=== PATIENT | female | born 1940 ===

== ENCOUNTER 2017-12-05 11:43 | Inpatient (IN) | payer MEDICARE, MEDICAID ==
--- NOTE | 2017-12-05 12:36 | RAD ---
HISTORY: Vertigo COMPARISONS: None TECHNIQUE: Multiple contiguous axial CT scans were obtained of the head without intravenous contrast. FINDINGS: HEMORRHAGE/INFARCT: There is no hemorrhage or acute infarct. MASSES/SHIFT: There is no mass or shift. EXTRA-AXIAL SPACES: There are no extra-axial fluid collections. SULCI AND VENTRICLES: The sulci and ventricles are normal in size and position for the patient's stated age. CEREBRUM: There are no focal parenchymal abnormalities. BRAINSTEM: There are no focal parenchymal abnormalities. CEREBELLUM: There are no focal parenchymal abnormalities. VESSELS: The vessels are grossly normal. PARANASAL SINUSES: The paranasal sinuses are clear. ORBITS: The orbits are unremarkable. BONES AND SOFT TISSUE: No bone or soft tissue abnormalities are noted. OTHER: None IMPRESSION: NO ACUTE INTRACRANIAL PATHOLOGY.
[2017-12-05 13:18] LABS: INR 0.91 (0.77-1.02)
[2017-12-05] MEDS ORDERED: Aspirin TAB* 325 MG PO ONE (13:22)
[2017-12-05 13:25] LABS: EGFR Non-African American 89.7 (>60)
[2017-12-05] MEDS ORDERED: Iohexol 350* (CONTRAST) 500 ML MDV IV ONE (13:54)
[2017-12-05 14:02] LABS: Urine Appearance Clear; Urine Blood 1+ (Negative); Urine Color Straw; Urine Ketones Negative (Negative); Urine Protein Negative (Negative); Urine Specific Gravity 1.004 (1.010-1.030); Urine Urobilinogen Negative (Negative)
--- NOTE | 2017-12-05 14:21 | RAD ---
HISTORY: Vertigo COMPARISONS: Head CT dated December 05, 2014 TECHNIQUE: Multiple contiguous axial CT scans were obtained of the head and neck after the administration of nonionic intravenous contrast timed to the systemic arterial phase of contrast enhancement. Coronal and sagittal multiplanar reformations are submitted for review. Multiple 3-D maximum intensity projection reconstructions are also submitted for review. FINDINGS: CTA NECK: AORTIC ARCH: There is a normal three-vessel branching pattern of the aortic arch. There is no ostial or proximal stenosis of the cephalic great vessels. RIGHT VERTEBRAL ARTERY: The right vertebral artery is patent along its course, without stenosis. LEFT VERTEBRAL ARTERY: The left vertebral artery is patent along its course, without stenosis. DOMINANCE: The right vertebral artery is dominant. RIGHT COMMON CAROTID ARTERY: The right common carotid artery is patent. The right carotid bifurcation occurs at C3-C4 RIGHT INTERNAL CAROTID ARTERY: There is no right internal carotid artery stenosis by NASCET criteria. RIGHT EXTERNAL CAROTID ARTERY: The right external carotid artery is unremarkable. LEFT COMMON CAROTID ARTERY: The left common carotid artery is patent. The left carotid bifurcation occurs at C3-C4 LEFT INTERNAL CAROTID ARTERY: There is minimal calcified plaque of the left proximal carotid bifurcation. There is minimal beading of the midportion of the cervical internal carotid artery consistent with fibromuscular dysplasia. LEFT EXTERNAL CAROTID ARTERY: The left external carotid artery is unremarkable. VENOUS CIRCULATION: The venous system is unremarkable. SALIVARY GLANDS: The parotid glands, submandibular glands, sublingual glands are normal. NASAL CAVITY/NASOPHARYNX: The nasal cavity and nasopharynx are normal. ORAL CAVITY/OROPHARYNX: The oral cavity and oropharynx are unremarkable. LARYNGEAL APPARATUS/HYPOPHARYNX: The laryngeal apparatus and hypopharynx are normal. UPPER AIRWAY/UPPER ESOPHAGUS: The visualized upper airway and esophagus are normal. LUNG APICES: The lung apices are clear. THYROID GLAND: The thyroid gland is normal. LYMPH NODES: There is no lymphadenopathy by size criteria. BONES AND SOFT TISSUES: No bone or soft tissue abnormalities are noted. CTA HEAD: INTRACRANIAL CIRCULATION: There is no aneurysm, vascular malformation, occlusion, or stenosis of the visualized intracranial circulation. The anterior communicating artery complex is clear. Bilateral posterior communicating arteries are identified. VENOUS CIRCULATION: The venous system is unremarkable. PERFUSION: There is no obvious parenchymal perfusion deficit. HEMORRHAGE/INFARCT: There is no hemorrhage or acute infarct. MASSES/SHIFT: There is no mass or shift. EXTRA-AXIAL SPACES: There are no extra-axial fluid collections. SULCI AND VENTRICLES: The sulci and ventricles are normal in size and position for the patient's stated age. CEREBRUM: There are no focal parenchymal abnormalities. BRAINSTEM: There are no focal parenchymal abnormalities. CEREBELLUM: There are no focal parenchymal abnormalities. PARANASAL SINUSES: The paranasal sinuses are clear. ORBITS: The orbits are unremarkable. BONES AND SOFT TISSUE: Mild degenerative changes are noted OTHER: There is no abnormal enhancement. IMPRESSION: 1. 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 2. NO INTERNAL CAROTID ARTERY STENOSIS BY NASCET CRITERIA. 3. NO ANEURYSM, VASCULAR MALFORMATION, OCCLUSION, OR STENOSIS OF THE VISUALIZED INTRACRANIAL CIRCULATION. CPT II Codes: 3100F
[2017-12-05] MEDS ORDERED: Ibuprofen TAB* 200 MG PO PRN (14:33)
[2017-12-05 14:45] LABS: ABS Basophils 0.1 10^3/ul (0-0.2); ABS Eosinophils 0.2 10^3/ul (0-0.6); ABS Lymphocytes 1.6 10^3/ul (1.0-4.8); ABS Monocytes 0.3 10^3/ul (0-0.8); ABS Neutrophils 4.6 10^3/ul (1.5-7.7); ABS Nucleated RBC 0 10^3/ul; Eosinophil % 3.1 % (0-6); Hematocrit 40 % (35-47); Hemoglobin 13.9 g/dl (12.0-16.0); Lymphocyte % 23.6 % (25-47); Mean Corpuscular HGB Conc 35 g/dl (31-36); Mean Corpuscular Hemoglobin 32 pg (27-31); Mean Corpuscular Volume 90 fL (80-97); Mean Platelet Volume 8 um3 (7.4-10.4); Nucleated Red Blood Cells % 0.2; Platelet Count 198 10^3/ul (150-450); Red Blood Count 4.41 10^6/ul (4.0-5.4); Red Cell Distribution Width 13 % (10.5-15); White Blood Count 6.8 10^3/ul (3.5-10.8)
[2017-12-05] MEDS ORDERED: NS 0.9% 1000 ML* 1,000 ML IV SCH (14:45)
[2017-12-05] MEDS ORDERED: Meclizine TAB* 12.5 MG PO PRN (14:46)
[2017-12-05] MEDS ORDERED: Ondansetron INJ* 2 MG/ML VIAL IV PRN (14:47)
--- NOTE | 2017-12-05 16:06 | ED ---
Cisco Dyer Stephanie, scribed for Jony Aguillon MD on 12/05/17 at 1222 . Dizziness - HPI Summary HPI Summary: The pt is a 76 y/o F presenting to the ED with c/o dizziness that began at 03: 00. The dizziness is described as head-spinning dizziness. The pt states she woke up to use the bathroom and experienced unsteady gait and nausea. The pt denies double vision and vomiting. - History Of Current Complaint Chief Complaint: EDDizziness Stated Complaint: DIZZINESS,NAUSEA Time Seen by Provider: 12/05/17 11:56 Hx Obtained From: Patient, Family/Operations Associate - granddaughter-smeller Onset/Duration: Still Present Timing: Constant Character: Head Spinning Aggravating Factor(s): Supine To Erect Alleviating Factor(s): Nothing Associated Signs And Symptoms: Positive: Nausea, Unsteady Gait. Negative: Vomiting, Visual Changes - Allergies/Home Medications Allergies/Adverse Reactions: Allergies Allergy/AdvReac Type Severity Reaction Status Date / Time No Known Allergies Allergy Verified 09/26/12 16:21 Home Medications: Home Medications Brimonid/Timolol 0.2/0.5%(NF) [Combigan 0.2/0.5% (NF)] 1 drop BOTH EYES BEDTIME 12/05/17 [History Confirmed 12/05/17] Ketotifen Fumarate [Eye Itch Relief] 1 drop BOTH EYES BID PRN 12/05/17 [History Confirmed 12/05/17] Latanoprost 0.005%* [Xalatan 0.005%*] 1 drop BOTH EYES BEDTIME 12/05/17 [ History Confirmed 12/05/17] PMH/Surg Hx/FS Hx/Imm Hx Endocrine/Hematology History: Reports: Other Endocrine/Hematological Disorders - HLD Neurological History: Reports: Other Neuro Impairments/Disorders - resting R arm tremor - Cancer History Cancer Type, Location and Year: BREAST CA - Surgical History Surgery Procedure, Year, and Place: LEFT MASTECTOMY 1996, ABDOMINAL SURGERY (PT UNABLE TO STATE WHAT KIND OF SURGERY). Infectious Disease History: No Infectious Disease History: Reports: Traveled Outside the [place] in Last 30 Days - in [place] last week - Family History Known Family History: Positive: Cardiac Disease - Social History Occupation: Retired Lives: With Family Alcohol Use: None Substance Use Type: Reports: None Smoking Status (MU): Never Smoked Tobacco Review of Systems Negative: Fever Negative: Blurred Vision Positive: Nausea. Negative: Vomiting Neurological: Other - dizziness, unsteady gait All Other Systems Reviewed And Are Negative: Yes Physical Exam - Summary Physical Exam Summary: Appearance: The patient is well-nourished in no acute distress and in no acute pain. Skin: The skin is warm and dry and skin color reflects adequate perfusion. HEENT: The head is normocephalic and atraumatic. The pupils are equal. Slight horizontal nystagmus, fast component to the right, aggravated by looking to the right. The conjunctivae are clear and without drainage. Nares are patent and without drainage. Mouth reveals moist mucous membranes and the throat is without erythema and exudate. The external ears are intact. The ear canals are patent and without drainage. The tympanic membranes are intact. Neck: the neck is supple with full range of motion and non-tender. There are no carotid bruits. There is no neck vein distension. Respiratory: Chest is non-tender. Lungs are clear to auscultation and breath sounds are symmetrical and equal. Cardiovascular: Heart is regular rate and rhythm. There is no murmur or rub auscultated. There is no peripheral edema and pulses are symmetrical and equal. Abdomen: The abdomen is soft and non-tender. There are normal bowel sounds heard in all four quadrants and there is no organomegaly palpated. Musculoskeletal: There is no back tenderness noted. Extremities are non-tender with full range of motion. There is good capillary refill. There is no peripheral edema or calf tenderness elicited. Neurological: Patient is alert and oriented to person, place and time. The patient has symmetrical motor strength in all four extremities. Cranial nerves are grossly intact. Deep tendon reflexes are symmetrical and equal in all four extremities. Psychiatric: The patient has an appropriate affect and does not exhibit any anxiety or depression. Triage Information Reviewed: Yes Vital Signs On Initial Exam: Initial Vitals Temp Pulse Resp BP Pulse Ox 97.0 F 61 16 205/87 96 12/05/17 11:51 12/05/17 11:51 12/05/17 11:51 12/05/17 11:51 12/05/17 11:51 Vital Signs Reviewed: Yes Diagnostics - Vital Signs Vital Signs Temp Pulse Resp BP Pulse Ox 12/05/17 12:07 98.2 F 61 22 190/91 98 12/05/17 12:05 66 13 97 12/05/17 11:51 97.0 F 61 16 205/87 96 - Laboratory Lab Results: Lab Results 12/05/17 12/05/17 12/05/17 Range/Units 13:00 13:00 13:00 WBC (3.5-10.8) 10^3/ul RBC (4.0-5.4) 10^6/ul Hgb (12.0-16.0) g/dl Hct (35-47) % MCV (80-97) fL MCH (27-31) pg MCHC (31-36) g/dl RDW (10.5-15) % Plt Count (150-450) 10^3/ul MPV (7.4-10.4) um3 Neut % (Auto) (38-83) % Lymph % (Auto) (25-47) % Bell % (Auto) (0-7) % Eos % (Auto) (0-6) % Baso % (Auto) (0-2) % Absolute Neuts (auto) (1.5-7.7) 10^3/ul Absolute Lymphs (auto) (1.0-4.8) 10^3/ul Absolute Monos (auto) (0-0.8) 10^3/ul Absolute Eos (auto) (0-0.6) 10^3/ul Absolute Basos (auto) (0-0.2) 10^3/ul Absolute Nucleated RBC 10^3/ul Nucleated RBC % INR (Anticoag Therapy) 0.91 (0.77-1.02) Sodium 134 (133-145) mmol/L Potassium TNP Chloride 101 (101-111) mmol/L Carbon Dioxide 26 (22-32) mmol/L Anion Gap 7 (2-11) mmol/L BUN 12 (6-24) mg/dL Creatinine 0.64 (0.51-0.95) mg/dL Est GFR ( Amer) 115.4 (>60) Est GFR (Non-Af Amer) 89.7 (>60) BUN/Creatinine Ratio 18.8 (8-20) Glucose 103 H (70-100) mg/dL Lactic Acid 1.1 (0.5-2.0) mmol/L Calcium 10.1 (8.6-10.3) mg/dL Magnesium TNP Total Bilirubin 0.80 (0.2-1.0) mg/dL AST TNP ALT 21 (7-52) U/L Alkaline Phosphatase 105 H (34-104) U/L Troponin I 0.00 (<0.04) ng/mL C-Reactive Protein 2.29 (< 5.00) mg/L Total Protein 7.9 (6.4-8.9) g/dL Albumin 4.6 (3.2-5.2) g/dL Globulin 3.3 (2-4) g/dL Albumin/Globulin Ratio 1.4 (1-3) TSH 0.96 (0.34-5.60) mcIU/mL Urine Color Urine Appearance Urine pH (5-9) Ur Specific Pierz (1.010-1.030) Urine Protein (Negative) Urine Ketones (Negative) Urine Blood (Negative) Urine Nitrate (Negative) Urine Bilirubin (Negative) Urine Urobilinogen (Negative) Ur Leukocyte Esterase (Negative) Urine WBC (Auto) (Absent) Urine RBC (Auto) (Absent) Ur Squamous Epith Cells (Absent) Urine Bacteria (Absent) Urine Glucose (Negative) 12/05/17 12/05/17 12/05/17 Range/Units 13:30 14:34 14:34 WBC 6.8 (3.5-10.8) 10^3/ul RBC 4.41 (4.0-5.4) 10^6/ul Hgb 13.9 (12.0-16.0) g/dl Hct 40 (35-47) % MCV 90 (80-97) fL MCH 32 H (27-31) pg MCHC 35 (31-36) g/dl RDW 13 (10.5-15) % Plt Count 198 (150-450) 10^3/ul MPV 8 (7.4-10.4) um3 Neut % (Auto) 68.3 (38-83) % Lymph % (Auto) 23.6 L (25-47) % Bell % (Auto) 4.0 (0-7) % Eos % (Auto) 3.1 (0-6) % Baso % (Auto) 1.0 (0-2) % Absolute Neuts (auto) 4.6 (1.5-7.7) 10^3/ul Absolute Lymphs (auto) 1.6 (1.0-4.8) 10^3/ul Absolute Monos (auto) 0.3 (0-0.8) 10^3/ul Absolute Eos (auto) 0.2 (0-0.6) 10^3/ul Absolute Basos (auto) 0.1 (0-0.2) 10^3/ul Absolute Nucleated RBC 0 10^3/ul Nucleated RBC % 0.2 INR (Anticoag Therapy) (0.77-1.02) Sodium (133-145) mmol/L Potassium 4.1 Chloride (101-111) mmol/L Carbon Dioxide (22-32) mmol/L Anion Gap (2-11) mmol/L BUN (6-24) mg/dL Creatinine (0.51-0.95) mg/dL Est GFR ( Amer) (>60) Est GFR (Non-Af Amer) (>60) BUN/Creatinine Ratio (8-20) Glucose (70-100) mg/dL Lactic Acid (0.5-2.0) mmol/L Calcium (8.6-10.3) mg/dL Magnesium Total Bilirubin (0.2-1.0) mg/dL AST 20 ALT (7-52) U/L Alkaline Phosphatase (34-104) U/L Troponin I (<0.04) ng/mL C-Reactive Protein (< 5.00) mg/L Total Protein (6.4-8.9) g/dL Albumin (3.2-5.2) g/dL Globulin (2-4) g/dL Albumin/Globulin Ratio (1-3) TSH (0.34-5.60) mcIU/mL Urine Color Straw Urine Appearance Clear Urine pH 7.0 (5-9) Ur Specific Pierz 1.004 L (1.010-1.030) Urine Protein Negative (Negative) Urine Ketones Negative (Negative) Urine Blood 1+ A (Negative) Urine Nitrate Negative (Negative) Urine Bilirubin Negative (Negative) Urine Urobilinogen Negative (Negative) Ur Leukocyte Esterase Trace A (Negative) Urine WBC (Auto) Trace(0-5/hpf) (Absent) Urine RBC (Auto) Trace(0-2/hpf) (Absent) Ur Squamous Epith Cells Present A (Absent) Urine Bacteria Absent (Absent) Urine Glucose Negative (Negative) Result Diagrams: 12/05/17 14:34 12/05/17 14:34 Lab Statement: Any lab studies that have been ordered have been reviewed, and results considered in the medical decision making process. - CT Brain CT Interpretation: No Acute Changes CT Interpretation Completed By: Radiologist - NO ACUTE INTRACRANIAL PATHOLOGY. - EKG 12:16 Cardiac Rate: NL EKG Rhythm: Sinus Rhythm - [address] Segment: Normal Ectopy: None EKG Interpretation: Normal Dizzy Course/Dx - Course Course Of Treatment: Ms. Pryor woke up this AM and noticed dizziness and a gait disturbance. She has vomited at least once and is still nauseated. She has no tinnitius, diplopia or speech problems. She has a little horizontal nystagmus brought out by looking to the right. No headache. I consulted with Dr. Donahue because of the risk factors for a central etiology and she came to the ED to evaluate the patient. She is being admitted by the hospitalist. - Diagnoses Provider Diagnoses: Vertigo Discharge - Discharge Plan Condition: Stable Disposition: ADMITTED TO [facility] Referrals: Mynor Del Toro MD [Primary Care Provider] - The documentation as recorded by the Cisco shah Stephanie accurately reflects the service I personally performed and the decisions made by me, Jony Aguillon MD.
[2017-12-05] MEDS: Heparin VIAL(*) 5000 UNITS/ML VIAL (FIVE THOUSAND) SUBCUT SCH ×2 (21:18→22:00)
[2017-12-05] MEDS: Latanoprost 0.005%* 2.5 ml BTL BOTH EYES SCH (21:43)
--- NOTE | 2017-12-05 22:58 | CONS ---
CONSULTATION REPORT: DATE OF CONSULT: 12/05/17 REQUESTING PHYSICIAN: Dr. Moisés Aguillon. DOCTOR OF NURSE ANESTHESIA: Granddaughter. HISTORY OF PRESENT ILLNESS: Roya Martinez is a 76-year-old woman from [place] with a history of breast cancer who after a recent trip to [place] developing a cough, now comes in with acute onset of vertigo. At about 3 a.m., she was in bed and all of a sudden had acute onset of vertigo with no other focal symptoms noted on history or exam other than a brief period of time where she saw 2 lights in the morning instead of 1. There was associated nausea, no vomiting. She felt unsteady when she would move. No new numbness or weakness of arms or legs. No change in speech. In the emergency room, persistent dizziness and nystagmus was noted by ED provider. She was sent for a CT of the brain, which did not show any intracranial pathology and this film was reviewed directly given the symptom onset at 3 a.[address] We proceeded to CT of the brain and neck, which did not show vertebrobasilar stenosis. Her NIH stroke scale was 0 on my examination. PAST MEDICAL HISTORY: Includes glaucoma, history of breast cancer with left mastectomy, no recurrence, left knee replacement, and a cholecystomy. MEDICATIONS: Include: 1. Latanoprost 0.005% in both eyes each night. 2. Combigan 0.2/0.5 drop in each eye at night. 3. Ibuprofen p.r.n. 4. Ketotifen p.r.n. for itching of eyes. ALLERGIES: She has no known drug allergies. FAMILY HISTORY: Includes mother around 60 when she collapsed. Father in his 80s, unknown cause. Brother in his 90s, he had some eye problems and his sister last month in her 70s of heart disease. SOCIAL HISTORY: She lives with her family. She does not smoke. Rarely drinks alcohol. REVIEW OF SYSTEMS: There is no chest pain, chest pressure, palpitations. She has had a recent cough. There has been no pain in her ears. She complained of some tinnitus to her daughter, but denies this now. There has been no difficulty with swallowing. No numbness or weakness of arms or legs, change in bowel or bladder habits, recent rash, illness. There has been no recent trauma. No known psychiatric history. PHYSICAL EXAM: On examination, vital signs include a temperature of 98.2 degrees Fahrenheit, pulse of 74, respiratory rate 20, saturation 97%. Her blood pressures have been high since she is here, most recent blood pressure was 208/80. She had a regular cardiac rhythm. Her lungs are clear to auscultation. There was no evidence of peripheral edema and good peripheral pulses. She has full extraocular movements with no nystagmus. Pupils were equal and responsive to light. Fundi were hard to visualize. When asking her to turn her head quickly to the left, she felt a little off and she also felt this, however, to the right. Later after a CT was cleared, we did a Hallpike and it was perhaps worse on the left than the right, but no nystagmus was seen. Her facial expression, sensation, hearing were equal. Palate was upgoing. Tongue was midline. Sternocleidomastoid and trapezius were 5/5 in strength. There was normal bulk and tone. No pronator drift. Good strength in the upper and lower extremities with normal [id number] and heel-to- young movements. She denied any asymmetries to pinprick, cold or light touch and there was no neglect. Her vibration sensation was still felt at the toes, but down by about 20 seconds. Reflexes were 2+ in the upper extremities, absent in the lower extremities. Toes were flexor response. Gait was not tested due to clinical status. LABORATORY DATA/DIAGNOSTIC STUDIES: Recent results include a CBC, which showed a normal white count, hemoglobin, hematocrit, and platelets. Lymphocytes were slightly decreased to 23.6. Her metabolic panel showed a glucose of 103. Her alk phos was elevated at 105. TSH was within normal limits as was C-reactive protein. Urinalysis showed trace esterase, 1+ blood. The CT of the brain showed no significant pathology. This film was reviewed directly and CTA of the brain showed some mild fibromuscular dysplasia in the left ICA, however no evidence of vertebrobasilar stenosis. IMPRESSION: Mrs. Martinez is a 76-year-old woman with a history of breast cancer and a recent trip to [place] with cough, now with acute onset of vertigo with no clear focal findings on examination. Hallpike maneuver was performed, and question was made whether there was some subtle difference going to the left, but this could not be reproduced and there was no nystagmus. Differential does still includes stroke/TIA. Accordingly, she will be on aspirin, admitted to telemetry, echocardiogram, MRI depending on how her exam evolves. If it becomes clear that is peripheral in etiology, then we can hold up on any further workup. I would check fasting lipid profile. TIME SPENT: Over an hour was spent in direct patient care in the emergency room. All questions were answered. [id number]/[facility] #: [id number] VANDANA
--- NOTE | 2017-12-06 00:13 | HP ---
CC: Dr. Del Toro* [facility] MEDICINE HISTORY AND PHYSICAL: DATE OF ADMISSION: 12/05/17 PRIMARY CARE PHYSICIAN: Dr. Del Toro. ATTENDING PHYSICIAN: Dr. Karoline Foy* (dictation provided by Georgia Weiss NP) CHIEF COMPLAINT: Dizziness. HISTORY OF PRESENT ILLNESS: Ms. Martinez is a 76-year-old female with a past medical history of glaucoma, hyperlipidemia and breast cancer over 20 years ago who presents today at the hospital with concern for dizziness. Ms. Martinez has lived in [place] for about 10 years, but she does not speak [place] as a primary language and is from [place]. Multiple members of her family are at the bedside to help with translation. Per the report, Ms. Martinez began to feel dizzy at 3 a.m. when she awoke to go to the bathroom. She states the dizziness was worse when she is upright and much better when she is lying down. She denies headache. She has had no nausea or vomiting. She has had no recent illnesses other than a dry cough, which she has had for about 2 weeks. She denies chest pain, shortness of breath, abdominal pain. She has had no diarrhea. She has been eating and drinking well prior to today. The patient reports that she had a similar episode about a year ago that lasted about 2 days and resolved spontaneously. This was while she was in [place] and she was not hospitalized at that time. In the emergency room, Ms. Martinez had a CT of the brain, which showed no acute abnormality. 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 No internal carotid artery stenosis by NASCET criteria. No aneurysm, vascular malformation, occlusion, or stenosis of the visualized intracranial circulation." The patient was seen in consultation by Dr. Donahue, who performed a [place]-Hallpike Maneuver and there was no clear improvement in the dizziness; though at the time of my examination, the patient seems to indicate she does feel a bit better. PAST MEDICAL HISTORY: 1. Glaucoma. 2. Breast cancer 20 years ago, status post mastectomy. 3. Hyperlipidemia. MEDICATIONS: 1. Combigan 0.2/0.5% one drop both eyes at bedtime. 2. Ketotifen fumarate 1 drop both eyes b.i.d. p.r.n. 2. Ibuprofen 200 mg p.o. q.6 hours p.r.n. 3. Latanoprost 0.005% one drop both eyes at bedtime. ALLERGIES: No known drug allergies. FAMILY HISTORY: The patient's family reports that both of her parents when they were elderly, but there was no clear cause of determined. SOCIAL HISTORY: No report of tobacco or drug use. The patient drinks alcohol about once per month. The report was that Diana Martinez will be her healthcare proxy, who is her son. REVIEW OF SYSTEMS: A 14-point review of systems was completed with Ms. Martinez and all those not mentioned above were negative. PHYSICAL EXAMINATION GENERAL: Ms. Martinez is lying in the bed. She is in no acute distress. Multiple family members are at the bedside. VITAL SIGNS: Temperature 98.2, heart rate 69, respiratory rate 20, O2 saturation 97% on room air, blood pressure 187/75. HEENT: Head is normocephalic, atraumatic. Eyes are anicteric and there was no conjunctival injection. Ears, the tympanic membranes show no erythema and a normal cone of light. The oropharynx is clear without erythema or exudate. LUNGS: Clear to auscultation bilaterally with no accessory muscle use and good aeration. HEART: S1, S2. No murmur, rub, or gallop, and regular. ABDOMEN: Soft, nontender with bowel sounds positive x4. EXTREMITIES: No cyanosis or edema. NEURO: She is alert. She is oriented x3. She moves all extremities equally. There is no facial asymmetry or focal weakness. Extraocular movements are intact. SKIN: Intact. DIAGNOSTIC STUDIES/LAB DATA: WBC is 6.8, hemoglobin 13.9, hematocrit 40, platelet count 198. INR is 0.91. Sodium 134, potassium 4.1, chloride 101, serum bicarbonate 26, BUN 12, creatinine 0.64, glucose 103, lactic acid 1.1, troponin 0.00. Urine shows trace leukocyte esterase, but no bacteria and no nitrite. CT brain shows no acute intracranial pathology. The head and neck CTA is as read per the HPI. ASSESSMENT AND PLAN: Ms. Martinez is an 76-year-old female with a past medical history of glaucoma, breast cancer and hyperlipidemia who presents today at the hospital with concerns for dizziness. Our plans are for observation in the hospital for the followin. Dizziness: It is possible that this is benign positional paroxysmal vertigo. I appreciate the consultation from Dr. Donahue. She indicates that there is no clear nystagmus on [place]-Hallpike maneuver today and so diagnosis of benign paroxysmal positional vertigo is uncertain. The patient will require workup for stroke including telemetry monitoring and echocardiogram. CT brain is negative. She has been provided with aspirin and we will check a lipid profile. Dr. Donahue has indicated that she will follow along with the clinical course. An MRI brain will be ordered if needed based on examination tomorrow. 2. Hypertension. The patient's blood pressure has been running systolically 180 to 200 in the emergency room. Plan will be to add hydralazine for blood pressure greater than 185 if needed along with oral agents as needed based on clinical course. 3. Hyperlipidemia. The patient is not currently on any medication. Again, we are checking lipid profile. 4. Glaucoma. Continue home medications. 5. DVT prophylaxis with heparin subcu. 6. Code status is full code. TIME SPENT: Approximately 60 minutes were spent on admission of this patient; more than half time spent with the patient at the bedside reviewing the events leading up to this hospitalization, performing the physical examination and reviewing my plan of care. GEORGIA WEISS NP [id number]/[facility] #: [id number] VANDANA
[2017-12-06] MEDS: amLODIPine TAB* 5 MG PO SCH (04:59)
[2017-12-06] MEDS: Heparin VIAL(*) 5000 UNITS/ML VIAL (FIVE THOUSAND) SUBCUT SCH ×2 (05:01→14:11)
[2017-12-06] MEDS: Aspirin TAB* 325 MG PO SCH (08:19)
[2017-12-06] MEDS: BRIMONID BOTH EYES SCH ×2 (10:43→19:52)
[2017-12-06] MEDS: TIMOLOL BOTH EYES SCH ×2 (10:43→19:52)
--- NOTE | 2017-12-06 16:46 | PN ---
Subjective Date of Service: 12/06/17 Interval History: she feels completely better today. she has about 15 visitors in her room right now and she feels very good. her son Bryan interprets for me. she has been walking around, lying down and sitting up. no headache, blurry vision, weakness. her family has no concerns. Family History: Unchanged from Admission Social History: Unchanged from Admission Past Medical History: Unchanged from Admission Objective Active Medications: Amlodipine Besylate (Norvasc Tab*) 2.5 mg PO 0900 [facility] Last Admin: 12/06/17 04:59 Dose: 2.5 mg Aspirin (Aspirin Tab*) 325 mg PO DAILY [facility] Last Admin: 12/06/17 08:19 Dose: 325 mg Atorvastatin Calcium (Lipitor*) 40 mg PO 1700 [facility] Last Admin: 12/06/17 16:29 Dose: 40 mg Brimonidine/Timolol (Combigan 0.2/0.5% (Nf)) 1 drop BOTH EYES BID [facility] Last Admin: 12/06/17 10:43 Dose: 1 drop Heparin Sodium (Porcine) (Heparin Vial(*)) 5,000 units SUBCUT Q8HR [facility] Last Admin: 12/06/17 14:11 Dose: 5,000 units Ibuprofen (Advil Tab*) 200 mg PO Q6H PRN PRN Reason: PAIN Last Admin: 12/05/17 16:27 Dose: 200 mg Latanoprost (Xalatan 0.005%*) 1 drop BOTH EYES BEDTIME [facility] Last Admin: 12/05/17 21:43 Dose: 1 drop Meclizine HCl (Antivert Tab*) 12.5 mg PO Q8HR PRN PRN Reason: DIZZINESS Ondansetron HCl (Zofran Inj*) 4 mg IV Q6H PRN PRN Reason: NAUSEA Vital Signs - 8 hr 12/06/17 12/06/17 11:58 15:09 Temperature 97.8 F 98.1 F Pulse Rate 57 56 Respiratory 24 20 Rate Blood Pressure 147/71 143/66 (mmHg) O2 Sat by Pulse 97 97 Oximetry Oxygen Devices in Use Now: None Appearance: sitting up in chair, no distress Eyes: No Scleral Icterus, - - no nystagmus Ears/Nose/Mouth/Throat: NL Teeth, Lips, Gums Neck: NL Appearance and Movements; NL JVP Respiratory: Symmetrical Chest Expansion and Respiratory Effort, Clear to Auscultation Cardiovascular: NL Sounds; No Murmurs; No JVD, RRR Abdominal: NL Sounds; No Tenderness; No Distention Lymphatic: No Cervical Adenopathy Extremities: No Edema Skin: No Rash or Ulcers Neurological: Alert and Oriented x 3, NL Gait, NL Muscle Strength and Tone Result Diagrams: 12/05/17 14:34 12/05/17 14:34 Additional Lab and Data: Lab Results 12/05/17 12/05/17 12/05/17 Range/Units 13:00 13:00 13:00 WBC (3.5-10.8) 10^3/ul RBC (4.0-5.4) 10^6/ul Hgb (12.0-16.0) g/dl Hct (35-47) % MCV (80-97) fL MCH (27-31) pg MCHC (31-36) g/dl RDW (10.5-15) % Plt Count (150-450) 10^3/ul MPV (7.4-10.4) um3 Neut % (Auto) (38-83) % Lymph % (Auto) (25-47) % [place] % (Auto) (0-7) % Eos % (Auto) (0-6) % Baso % (Auto) (0-2) % Absolute Neuts (auto) (1.5-7.7) 10^3/ul Absolute Lymphs (auto) (1.0-4.8) 10^3/ul Absolute Monos (auto) (0-0.8) 10^3/ul Absolute Eos (auto) (0-0.6) 10^3/ul Absolute Basos (auto) (0-0.2) 10^3/ul Absolute Nucleated RBC 10^3/ul Nucleated RBC % INR (Anticoag Therapy) 0.91 (0.77-1.02) Sodium 134 (133-145) mmol/L Potassium TNP Chloride 101 (101-111) mmol/L Carbon Dioxide 26 (22-32) mmol/L Anion Gap 7 (2-11) mmol/L BUN 12 (6-24) mg/dL Creatinine 0.64 (0.51-0.95) mg/dL Est GFR ( Amer) 115.4 (>60) Est GFR (Non-Af Amer) 89.7 (>60) BUN/Creatinine Ratio 18.8 (8-20) Glucose 103 H (70-100) mg/dL Lactic Acid 1.1 (0.5-2.0) mmol/L Calcium 10.1 (8.6-10.3) mg/dL Magnesium TNP Total Bilirubin 0.80 (0.2-1.0) mg/dL AST TNP ALT 21 (7-52) U/L Alkaline Phosphatase 105 H (34-104) U/L Troponin I 0.00 (<0.04) ng/mL C-Reactive Protein 2.29 (< 5.00) mg/L Total Protein 7.9 (6.4-8.9) g/dL Albumin 4.6 (3.2-5.2) g/dL Globulin 3.3 (2-4) g/dL Albumin/Globulin Ratio 1.4 (1-3) TSH 0.96 (0.34-5.60) mcIU/mL Urine Color Urine Appearance Urine pH (5-9) Ur Specific [place] (1.010-1.030) Urine Protein (Negative) Urine Ketones (Negative) Urine Blood (Negative) Urine Nitrate (Negative) Urine Bilirubin (Negative) Urine Urobilinogen (Negative) Ur Leukocyte Esterase (Negative) Urine WBC (Auto) (Absent) Urine RBC (Auto) (Absent) Ur Squamous Epith Cells (Absent) Urine Bacteria (Absent) Urine Glucose (Negative) 12/05/17 12/05/17 12/05/17 Range/Units 13:30 14:34 14:34 WBC 6.8 (3.5-10.8) 10^3/ul RBC 4.41 (4.0-5.4) 10^6/ul Hgb 13.9 (12.0-16.0) g/dl Hct 40 (35-47) % MCV 90 (80-97) fL MCH 32 H (27-31) pg MCHC 35 (31-36) g/dl RDW 13 (10.5-15) % Plt Count 198 (150-450) 10^3/ul MPV 8 (7.4-10.4) um3 Neut % (Auto) 68.3 (38-83) % Lymph % (Auto) 23.6 L (25-47) % [place] % (Auto) 4.0 (0-7) % Eos % (Auto) 3.1 (0-6) % Baso % (Auto) 1.0 (0-2) % Absolute Neuts (auto) 4.6 (1.5-7.7) 10^3/ul Absolute Lymphs (auto) 1.6 (1.0-4.8) 10^3/ul Absolute Monos (auto) 0.3 (0-0.8) 10^3/ul Absolute Eos (auto) 0.2 (0-0.6) 10^3/ul Absolute Basos (auto) 0.1 (0-0.2) 10^3/ul Absolute Nucleated RBC 0 10^3/ul Nucleated RBC % 0.2 INR (Anticoag Therapy) (0.77-1.02) Sodium (133-145) mmol/L Potassium 4.1 Chloride (101-111) mmol/L Carbon Dioxide (22-32) mmol/L Anion Gap (2-11) mmol/L BUN (6-24) mg/dL Creatinine (0.51-0.95) mg/dL Est GFR ( Amer) (>60) Est GFR (Non-Af Amer) (>60) BUN/Creatinine Ratio (8-20) Glucose (70-100) mg/dL Lactic Acid (0.5-2.0) mmol/L Calcium (8.6-10.3) mg/dL Magnesium Total Bilirubin (0.2-1.0) mg/dL AST 20 ALT (7-52) U/L Alkaline Phosphatase (34-104) U/L Troponin I (<0.04) ng/mL C-Reactive Protein (< 5.00) mg/L Total Protein (6.4-8.9) g/dL Albumin (3.2-5.2) g/dL Globulin (2-4) g/dL Albumin/Globulin Ratio (1-3) TSH (0.34-5.60) mcIU/mL Urine Color Straw Urine Appearance Clear Urine pH 7.0 (5-9) Ur Specific [place] 1.004 L (1.010-1.030) Urine Protein Negative (Negative) Urine Ketones Negative (Negative) Urine Blood 1+ A (Negative) Urine Nitrate Negative (Negative) Urine Bilirubin Negative (Negative) Urine Urobilinogen Negative (Negative) Ur Leukocyte Esterase Trace A (Negative) Urine WBC (Auto) Trace(0-5/hpf) (Absent) Urine RBC (Auto) Trace(0-2/hpf) (Absent) Ur Squamous Epith Cells Present A (Absent) Urine Bacteria Absent (Absent) Urine Glucose Negative (Negative) Assess/Plan/Problems-Billing Assessment: 76 yo female with history of glaucoma and remote breast cancer who was admitted 3/3 with sudden onset of "dizziness" that began in the middle of the night and lasted several hours but is now completely resolved. - Patient Problems (1) Disequilibrium Current Visit: Yes Status: Acute Code(s): R42 - DIZZINESS AND GIDDINESS SNOMED Code(s): 94428365 Comment: isaac hallpike was unable to be performed yesterday, and is of no use today while symptoms are not present. the timeline of her symptoms (lasting hours) does not fit one of BPPV. her Ct head was unremarkable, and the CTA showed fibromuscular dysplasia of the internal carotid artery but without stenosis. needs MRI tomorrow. start atorvastatin for concern for TIA, continue ASA. also TTE tomorrow (2) Glaucoma Current Visit: Yes Status: Acute Code(s): H40.9 - UNSPECIFIED GLAUCOMA SNOMED Code(s): 07087947 Comment: continue home eye drops (3) HTN (hypertension) Current Visit: Yes Status: Acute Code(s): I10 - ESSENTIAL (PRIMARY) HYPERTENSION SNOMED Code(s): 51537975 Comment: there was some concern of poorly controlled htn at admission, but today has been at goal. amlodipine 2.5mg was added last night. Status and Disposition: needs MRi and TTE tomorrow
[2017-12-06] MEDS ORDERED: Atorvastatin* 40 MG TAB PO SCH (17:00)
[2017-12-06] MEDS: Latanoprost 0.005%* 2.5 ml BTL BOTH EYES SCH (19:54)
--- NOTE | 2017-12-07 03:47 | PN ---
FOLLOWUP NOTE: DATE OF FOLLOWUP: 12/06/2017. HISTORY OF PRESENT ILLNESS: Mrs. Martinez is a 76-year-old woman who was admitted last night with vertigo. For details, see my consultation from yesterday. Since that time, she tells me that she has had no dizziness. She could not recreate dizziness with head turn on today's exam. She has not had dizziness when getting out of bed. This she had experienced when she was in the emergency room. Given persistent nystagmus and vertigo despite seen by the emergency room physician, stroke was high on differential diagnosis and she had a CTA, which did not show posterior circulation pathology that would contribute to her symptoms. Her CT of the brain did not show new stroke and she was admitted to the hospital. Differential included benign positional vertigo given some position component that was noted on exam; however, could not be reproduced on Hallpike. She was placed on aspirin and then monitored with telemetry. PHYSICAL EXAMINATION: On examination this afternoon, her blood pressure was 147 /71, improved from previous. Her temperature is 97.8 degrees Fahrenheit, respiratory rate is 24, pulse 57, saturation 97%. She has a regular cardiac rhythm. Her lungs were clear to auscultation. She had full extraocular movements with no nystagmus. Her facial expression was symmetric. There was no dysarthria. There was normal bulk and tone. No pronator drift. Normal coordination with [id number] and [id number] movements with no evidence of dysmetria and full strength in her arms and legs. LABORATORY DATA: Includes lipid profile from this morning showing total cholesterol of 187, triglycerides 125, LDL 118, HDL 43.6. IMPRESSION AND PLAN: Mrs. Martinez is a 76-year-old woman with minimal past medical history, who came in with acute onset of vertigo, question to be a transient ischemic attack versus stroke versus peripheral in etiology. Her symptoms have now resolved. She has been hypertensive while in hospital. It is improving, but it is still significant. She may need treatment. At this point, we have held off on treating and given permissive hypertension in the setting of differential diagnosis of stroke. At this point given her symptoms cannot be reproduced, I cannot state that this is clearly peripheral in etiology. This patient was in place in the emergency room for stroke versus transient ischemic attack and will continue stroke workup with MRI of the brain , echocardiogram with bubble study and continue to monitor her on telemetry. She has been started on aspirin and I would add atorvastatin for treatment of cholesterol. The history, the education for today's visit was all provided via family members and translators. I spoke to more than one relative and providing translation. TIME SPENT: Over 40 minutes was spent in direct patient care with 50% of the time spending in education and counseling as well as case was discussed with covering hospitalist. All questions were answered. Tomorrow, Dr. Peterson will be taking over in providing care. [id number]/[facility] #: [id number] VANDANA
[2017-12-07] MEDS: Heparin VIAL(*) 5000 UNITS/ML VIAL (FIVE THOUSAND) SUBCUT SCH ×2 (05:18→13:23)
--- NOTE | 2017-12-07 10:24 | ECHO ---
Patient: PA HERNANDEZ [facility] Rec#: [id number] : 1940 Date: 12/07/2017 Age: 76y Height: 152.4 cm / 60.0 in Weight: 86.18 kg / 189.9 lbs Sex: F BSA: 1.83 Room#: 443 Admit Date#: 12/05/2017 Type: Inpatient Referring: Georgia Weiss NP Reading: Jl Lopez MD [employer]: Gely Metz RDCS CC: Mynor Del Toro MD Transthoracic Echocardiogram Indication: CVA/dizziness BP: 156/59 HR: 65 Rhythm: NSR Findings History: HLD,s/p left mastectomy for breast cancer. Technical Comments: The study quality is good. Completed at 0845. Language barrier did effect technical quality. Left Ventricle: Mild concentric left ventricular hypertrophy is observed. Global left ventricular wall motion and contractility are within normal limits. There is normal left ventricular systolic function. The estimated ejection fraction is 55-60%. Abnormal left ventricular diastolic function is observed. Left Atrium: The left atrial chamber size is normal. Right Ventricle: The right ventricular cavity size is normal. The right ventricular global systolic function is normal. Right Atrium: The right atrial cavity size is normal. There is no patent foramen ovale visualized. There is no evidence of patent foramen ovale shunting. A patent foramen ovale is not demonstrated with color Doppler and agitated contrast. Aortic Valve: The aortic valve is trileaflet. There is no evidence of aortic valve thickening. There is moderate aortic regurgitation. There is no evidence of aortic stenosis. Mitral Valve: The mitral valve leaflets are mildly thickened. There is mild mitral regurgitation. There is no evidence of mitral stenosis. Tricuspid Valve: The tricuspid valve leaflets are normal. There is mild tricuspid regurgitation. There is evidence of mild pulmonary hypertension. There is no tricuspid stenosis. Pulmonic Valve: The pulmonic valve appears normal. There is mild pulmonic regurgitation. There is no pulmonic stenosis. Pericardium: A pericardial fat pad is visualized. Aorta: There is no dilatation of the ascending aorta. There is no dilatation of the aortic arch. There is no dilation of the aortic root. Pulmonary Artery: The main pulmonary artery appears normal. Venous: The inferior vena cava appears normal in size. There is a greater than 50% respiratory change in the inferior vena cava dimension. Contrast: Normal saline was used as contrast for the bubble study. Intravenous contrast was used to help determine presence of intracardiac shunting. Summary: There was not any prior study for comparison. Conclusions Global left ventricular wall motion and contractility are within normal limits. There is normal left ventricular systolic function. The estimated ejection fraction is 55-60%. The right ventricular global systolic function is normal. A patent foramen ovale is not demonstrated with color Doppler and agitated contrast. There is moderate aortic regurgitation. There is mild mitral regurgitation. There is mild tricuspid regurgitation. There is evidence of mild pulmonary hypertension. Measurements Name Value Normal Range RVIDd (AP) 2D 2.7 cm (0.9 - 2.6) RVDdMajor (2D) 3.1 cm (2.2 - 4.4) RAd ISD 4CH 5 cm (3.4 - 4.9) RA (A4C)W 3.5 cm (2.9 - 4.6) IVSd (2D) 1.2 cm (0.6 - 1) LVPWd (2D) 1.1 cm (0.6 - 1) LVIDd (2D) 4.3 cm (3.6 - 5.4) LVIDs (2D) 3.1 cm - LV FS (2D) 30 % (25 - 45) Aortic Annulus 2.2 cm (1.4 - 2.6) Ao root diameter (2D) 3.5 cm (2.1 - 3.5) Ascending Ao 3.1 cm (2.1 - 3.4) Aortic arch 3 cm (1.8 - 3.4) Descending Ao 0.5 cm - LA dimension (AP) 2D 3.7 cm (2.3 - 3.8) LAd ISD 4CH 5.3 cm (2.9 - 5.3) LA ISD 4CH W 3.1 cm (2.5 - 4.5) Name Value Normal Range LA ESV SP 4CH (A/L) 36 ml - LA ESV SP 2CH (A/L) 47 ml - LA ESV BP (A/L) 43 ml - LA ESV BP (A/L) index 23.62 ml/m2 - LA ESV SP 4CH (MOD) 34 ml - LA ESV SP 2CH (MOD) 46 ml - Name Value Normal Range MV E-wave Vmax 0.7 m/sec - MV deceleration time 303 msec - MV A-wave Vmax 1 m/sec - MV E:A ratio 0.68 ratio - LV septal e' Vmax 0.04 m/sec - LV lateral e' Vmax 0.05 m/sec - LV E:e' septal ratio 17.5 ratio - LV E:e' lateral ratio 14 ratio - Name Value Normal Range AV Vmax 1.6 m/sec - AV VTI 40.31 cm - AV peak gradient 10.49 mmHg - AV mean gradient 5.42 mmHg - LVOT Vmax 1.5 m/sec - LVOT VTI 34.9 cm - LVOT peak gradient 8.64 mmHg - LVOT mean gradient 4.06 mmHg - AR PHT 412 msec - AR peak gradient 117 mmHg - Name Value Normal Range TR Vmax 2.9 m/sec - TR peak gradient 34 mmHg - RAP 3 mmHg - RVSP 37 mmHg - IVC diameter 1.5 cm - Name Value Normal Range PV Vmax 0.8 m/sec - PV peak gradient 2.41 mmHg -
[2017-12-07] MEDS: amLODIPine TAB* 5 MG PO SCH (10:32)
[2017-12-07] MEDS: BRIMONID BOTH EYES SCH (10:32)
[2017-12-07] MEDS: TIMOLOL BOTH EYES SCH (10:32)
[2017-12-07] MEDS: Aspirin TAB* 325 MG PO SCH (10:32)
--- NOTE | 2017-12-07 11:38 | PN ---
Subjective Date of Service: 12/07/17 Interval History: No new issues overnight. Family is at the bedside and able to translate for me. Dizziness has resolved. No nausea or vomiting, no headache or ringing in her ears. No focal weakness or numbness/tingling. No problems with speech or swallowing. She is ambulating without assistance. Symptoms have resolved. 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 No significant stenosis. --Echo: Normal EF. No PFO. EF 55-60%. Moderate Aortic Regurg --Cholesterol: 187, LDL 118 Family History: Unchanged from Admission Social History: Unchanged from Admission Past Medical History: Unchanged from Admission Objective Active Medications: Amlodipine Besylate (Norvasc Tab*) 2.5 mg PO 0900 [facility] Last Admin: 12/07/17 10:32 Dose: 2.5 mg Aspirin (Aspirin Tab*) 325 mg PO DAILY [facility] Last Admin: 12/07/17 10:32 Dose: 325 mg Atorvastatin Calcium (Lipitor*) 40 mg PO 1700 [facility] Last Admin: 12/06/17 16:29 Dose: 40 mg Brimonidine/Timolol (Combigan 0.2/0.5% (Nf)) 1 drop BOTH EYES BID [facility] Last Admin: 12/07/17 10:32 Dose: 1 drop Heparin Sodium (Porcine) (Heparin Vial(*)) 5,000 units SUBCUT Q8HR [facility] Last Admin: 12/07/17 05:18 Dose: 5,000 units Ibuprofen (Advil Tab*) 200 mg PO Q6H PRN PRN Reason: PAIN Last Admin: 12/05/17 16:27 Dose: 200 mg Latanoprost (Xalatan 0.005%*) 1 drop BOTH EYES BEDTIME [facility] Last Admin: 12/06/17 19:54 Dose: 1 drop Meclizine HCl (Antivert Tab*) 12.5 mg PO Q8HR PRN PRN Reason: DIZZINESS Ondansetron HCl (Zofran Inj*) 4 mg IV Q6H PRN PRN Reason: NAUSEA Vital Signs 12/06/17 12/06/17 12/06/17 11:58 15:09 19:23 Temperature 97.8 F 98.1 F 97.6 F Pulse Rate 57 56 58 Respiratory 24 20 28 Rate Blood Pressure 147/71 143/66 147/57 (mmHg) O2 Sat by Pulse 97 97 96 Oximetry 12/06/17 12/06/17 12/07/17 20:00 23:33 03:34 Temperature 97.7 F 98.5 F Pulse Rate 59 63 Respiratory 22 20 16 Rate Blood Pressure 148/62 156/59 (mmHg) O2 Sat by Pulse 99 97 Oximetry 12/07/17 10:11 Temperature 97.8 F Pulse Rate 80 Respiratory 14 Rate Blood Pressure 153/88 (mmHg) O2 Sat by Pulse 96 Oximetry Oxygen Devices in Use Now: None Neurology Exam: General: HEENT: Normocephalic/atraumatic, sclera anicteric, mucous membranes moist Neck: Supple Chest: Clear to auscultation bilaterally Cardiovascular: Regular rate and rhythm without murmurs, rubs, gallops Abdomen: Soft, nontender/nondistended Extremities: No clubbing, cyanosis, or edema Neurological Findings: Awake, Alert, Oriented x3 Speech: fluent without dysarthric, repetition intact. Speaks Palauan only. Cranial Nerve: PEERL, EOM intact, VFF, no nystagmus, face symmetric bilaterally , facial sensation intact, hearing intact to finger rub bilaterally, palate elevates symmetrically, tongue midline, SCM and Trapezius s/s. No reproducible symptoms with head turning Motor: 5/5 throughout, proximal and distal extremities x4 tone/bulk normal Sensation: intact to LT/PP bilaterally upper and lower extremities Finger to nose, rapid alternating movements intact without tremor, no dysdiadochokinesia Gait: wide based and slow but that is baseline for her. Steady. Rhomberg minimal sway with eyes open and closed Result Diagrams: 12/05/17 14:34 12/05/17 14:34 Additional Lab and Data: Lab Results 12/05/17 12/05/17 12/05/17 Range/Units 13:00 13:00 13:00 WBC (3.5-10.8) 10^3/ul RBC (4.0-5.4) 10^6/ul Hgb (12.0-16.0) g/dl Hct (35-47) % MCV (80-97) fL MCH (27-31) pg MCHC (31-36) g/dl RDW (10.5-15) % Plt Count (150-450) 10^3/ul MPV (7.4-10.4) um3 Neut % (Auto) (38-83) % Lymph % (Auto) (25-47) % Vigo % (Auto) (0-7) % Eos % (Auto) (0-6) % Baso % (Auto) (0-2) % Absolute Neuts (auto) (1.5-7.7) 10^3/ul Absolute Lymphs (auto) (1.0-4.8) 10^3/ul Absolute Monos (auto) (0-0.8) 10^3/ul Absolute Eos (auto) (0-0.6) 10^3/ul Absolute Basos (auto) (0-0.2) 10^3/ul Absolute Nucleated RBC 10^3/ul Nucleated RBC % INR (Anticoag Therapy) 0.91 (0.77-1.02) Sodium 134 (133-145) mmol/L Potassium TNP Chloride 101 (101-111) mmol/L Carbon Dioxide 26 (22-32) mmol/L Anion Gap 7 (2-11) mmol/L BUN 12 (6-24) mg/dL Creatinine 0.64 (0.51-0.95) mg/dL Est GFR ( Amer) 115.4 (>60) Est GFR (Non-Af Amer) 89.7 (>60) BUN/Creatinine Ratio 18.8 (8-20) Glucose 103 H (70-100) mg/dL Lactic Acid 1.1 (0.5-2.0) mmol/L Calcium 10.1 (8.6-10.3) mg/dL Magnesium TNP Total Bilirubin 0.80 (0.2-1.0) mg/dL AST TNP ALT 21 (7-52) U/L Alkaline Phosphatase 105 H (34-104) U/L Troponin I 0.00 (<0.04) ng/mL C-Reactive Protein 2.29 (< 5.00) mg/L Total Protein 7.9 (6.4-8.9) g/dL Albumin 4.6 (3.2-5.2) g/dL Globulin 3.3 (2-4) g/dL Albumin/Globulin Ratio 1.4 (1-3) TSH 0.96 (0.34-5.60) mcIU/mL Urine Color Urine Appearance Urine pH (5-9) Ur Specific Sullivan (1.010-1.030) Urine Protein (Negative) Urine Ketones (Negative) Urine Blood (Negative) Urine Nitrate (Negative) Urine Bilirubin (Negative) Urine Urobilinogen (Negative) Ur Leukocyte Esterase (Negative) Urine WBC (Auto) (Absent) Urine RBC (Auto) (Absent) Ur Squamous Epith Cells (Absent) Urine Bacteria (Absent) Urine Glucose (Negative) 12/05/17 12/05/17 12/05/17 Range/Units 13:30 14:34 14:34 WBC 6.8 (3.5-10.8) 10^3/ul RBC 4.41 (4.0-5.4) 10^6/ul Hgb 13.9 (12.0-16.0) g/dl Hct 40 (35-47) % MCV 90 (80-97) fL MCH 32 H (27-31) pg MCHC 35 (31-36) g/dl RDW 13 (10.5-15) % Plt Count 198 (150-450) 10^3/ul MPV 8 (7.4-10.4) um3 Neut % (Auto) 68.3 (38-83) % Lymph % (Auto) 23.6 L (25-47) % Vigo % (Auto) 4.0 (0-7) % Eos % (Auto) 3.1 (0-6) % Baso % (Auto) 1.0 (0-2) % Absolute Neuts (auto) 4.6 (1.5-7.7) 10^3/ul Absolute Lymphs (auto) 1.6 (1.0-4.8) 10^3/ul Absolute Monos (auto) 0.3 (0-0.8) 10^3/ul Absolute Eos (auto) 0.2 (0-0.6) 10^3/ul Absolute Basos (auto) 0.1 (0-0.2) 10^3/ul Absolute Nucleated RBC 0 10^3/ul Nucleated RBC % 0.2 INR (Anticoag Therapy) (0.77-1.02) Sodium (133-145) mmol/L Potassium 4.1 Chloride (101-111) mmol/L Carbon Dioxide (22-32) mmol/L Anion Gap (2-11) mmol/L BUN (6-24) mg/dL Creatinine (0.51-0.95) mg/dL Est GFR ( Amer) (>60) Est GFR (Non-Af Amer) (>60) BUN/Creatinine Ratio (8-20) Glucose (70-100) mg/dL Lactic Acid (0.5-2.0) mmol/L Calcium (8.6-10.3) mg/dL Magnesium Total Bilirubin (0.2-1.0) mg/dL AST 20 ALT (7-52) U/L Alkaline Phosphatase (34-104) U/L Troponin I (<0.04) ng/mL C-Reactive Protein (< 5.00) mg/L Total Protein (6.4-8.9) g/dL Albumin (3.2-5.2) g/dL Globulin (2-4) g/dL Albumin/Globulin Ratio (1-3) TSH (0.34-5.60) mcIU/mL Urine Color Straw Urine Appearance Clear Urine pH 7.0 (5-9) Ur Specific Sullivan 1.004 L (1.010-1.030) Urine Protein Negative (Negative) Urine Ketones Negative (Negative) Urine Blood 1+ A (Negative) Urine Nitrate Negative (Negative) Urine Bilirubin Negative (Negative) Urine Urobilinogen Negative (Negative) Ur Leukocyte Esterase Trace A (Negative) Urine WBC (Auto) Trace(0-5/hpf) (Absent) Urine RBC (Auto) Trace(0-2/hpf) (Absent) Ur Squamous Epith Cells Present A (Absent) Urine Bacteria Absent (Absent) Urine Glucose Negative (Negative) Assessment/Plan Assessment: 76 year old with a history of breast cancer in the past, HTN X 2 years and glaucoma who came in with sudden onset dizziness, since resolved. Symptoms were not reproducible with maneuvers. She is feeling well and wants to go home. Will likely go home today pending completion of her workup: --MRI Pending: --CTA: Mild fibromuscular dysplasia of the cervical carotid on the left. No significant stenosis. --Echo: Normal EF. No PFO. EF 55-60%. Moderate Aortic Regurg --Cholesterol: 187, LDL 118 At discharge: --Continue BP control. Adjust outpatient meds as necessary --Continue baby ASA --Continue Statin --Consider outpatient vestibular rehab if the symptoms persist --Can follow up with neurology as necessary.
[2017-12-07 13:56] VITALS: BP 110/75
--- NOTE | 2017-12-07 16:21 | RAD ---
HISTORY: Vertigo, stroke COMPARISONS: Head CT dated December 05, 2012 TECHNIQUE: The following sequences were obtained of the head: Sagittal T1-weighted images, axial T2-weighted images, axial FLAIR images, axial susceptibility weighted images, axial T1-weighted images. Additionally, axial diffusion-weighted images were obtained with calculated apparent diffusion coefficients. FINDINGS: HEMORRHAGE/INFARCT: There is no hemorrhage or acute infarct. MASSES/SHIFT: There is no mass or shift. EXTRA-AXIAL SPACES/MENINGES: There are no extra-axial fluid collections. SULCI AND VENTRICLES: The sulci and ventricles are normal in size and position for the patient's stated age. CEREBRUM: There are multiple scattered small foci of elevated T2/FLAIR signal within the periventricular and subcortical white matter. BRAINSTEM: There are no focal parenchymal abnormalities. CEREBELLUM: There are no focal parenchymal abnormalities. The cerebellar tonsils are normal in size and position. SELLA: The sella is normal. PINEAL: The pineal region is clear. CP ANGLE/TEMPORAL BONES: The labyrinthine structures are grossly normal. VESSELS: Normal flow-voids are noted within the visualized vertebral vasculature. DIFFUSION ABNORMALITIES: There are no diffusion abnormalities. PARANASAL SINUSES/MASTOIDS: The paranasal sinuses are clear. ORBITS: The orbits are unremarkable. BONES AND SOFT TISSUE: No bone or soft tissue abnormalities are noted. OTHER: None IMPRESSION: 1. THERE ARE MULTIPLE FOCI OF ELEVATED T2/FLAIR SIGNAL WITHIN THE PERIVENTRICULAR AND SUBCORTICAL WHITE MATTER. WHILE THESE FINDINGS ARE NONSPECIFIC, THEY CAN BE SEEN IN ASSOCIATION WITH MIGRAINE HEADACHE, THE SEQUELA OF PREVIOUS INFECTION OR INFLAMMATION, AND CHRONIC SMALL VESSEL ISCHEMIA. DEMYELINATING DISEASE IS ALSO WITHIN THE DIFFERENTIAL, BUT IS CONSIDERED LESS LIKELY IN THE ABSENCE OF THE APPROPRIATE CLINICAL PRESENTATION. 2. NO RESTRICTED DIFFUSION TO SUGGEST ACUTE INFARCT.
--- NOTE | 2017-12-08 16:25 | DS ---
DISCHARGE SUMMARY: DATE OF ADMISSION: 12/06/17 DATE OF DISCHARGE: 12/07/17 ADMITTING PROVIDER: Georgia Weiss NP PRIMARY CARE PHYSICIAN: Dr. Del Toro. ATTENDING PHYSICIAN: Gray Oliva MD CHIEF COMPLAINT: Dizziness. PRINCIPAL DIAGNOSES: Hypertensive urgency; cerebrovascular accident ruled out; dizziness in the setting of hypertension. HISTORY OF PRESENT ILLNESS/HOSPITAL COURSE: Roya Martinez is a 76-year-old female with past medical history of glaucoma, hyperlipidemia, breast cancer (20 years prior), who presented to the hospital with dizziness, which was worse when she was upright and much better when she was lying down. This happened at 3 a.m. the morning of admission while she was going to the bathroom. She denied any nausea, vomiting or headache or recent illness, though did have a dry cough for about 2 weeks. She had a similar episode a year prior that lasted for 2 days and then resolved spontaneously. This had happened while she was visiting [place], and though she has lived in [place] for last 10 years, she is a non-Albanian speaker. Primary language is Albanian. In the emergency room, she had a CT of her brain, which showed no acute abnormality. Head and neck CTA showed some mild fibromuscular dysplasia of the left cervical internal carotid artery with no carotid stenosis. Dr. Donahue of Neurology was consulted for [place]-Hallpike maneuver, which was "worse on the left than the right, but no nystagmus was seen." Differential was TIA versus stroke and she had a transthoracic echocardiogram with negative bubble study on day of admission. No evidence of thrombus. Ejection fraction was 55% to 60%. There was abnormal diastolic function noted. There was evidence of moderate aortic regurgitation, mild mitral regurgitation, mild tricuspid regurgitation, and mild pulmonary hypertension. Of note, the patient's initial blood pressures on admission were 205/87. She was allowed to be permissively hypertensive initially, but eventually added 2.5 mg of amlodipine prior to discharge. She had a MRI of her brain on 12/07/17 without contrast, which showed multiple areas of elevated T2/FLAIR signal within the periventricular and subcortical white matter that are nonspecific, but can be seen with migraine headaches as the sequelae of previous infection or inflammation or with chronic small vessel ischemia or demyelinating disease. There was no restriction diffusion to suggest acute infarct. She had been started on atorvastatin 40 mg. Of note, her LDL was 118, HDL was 43.6, and the baby aspirin, these are all recommended to be continued on discharge. She is recommended to follow up with Dr. Donahue within 2 to 4 weeks, especially if her symptoms of dizziness return. DISCHARGE MEDICATIONS: Include: 1. Amlodipine 2.5 mg p.o. daily (new). 2. Aspirin 81 mg p.o. daily (new). 3. Ibuprofen 200 mg p.o. q.6 hours p.r.n. 4. Latanoprost (Xalatan) 0.005% 1 drop both eyes at bedtime. 5. Brimonidine/timolol 0.2/0.5% (Combigan) 1 drop both eyes at bedtime. 6. Ketotifen fumarate 1 drop both eyes b.i.d. p.r.n. 7. Atorvastatin 40 mg daily. DISCHARGE DIET: Heart-healthy. ACTIVITY: No restrictions. FOLLOWUP: Please follow up with Dr. Del Toro within 5 days of discharge and Dr. Donahue within 2 to 4 weeks of discharge. TIME SPENT: 35 minutes. [id number]/[facility] #: [id number] [facility]
== END 2017-12-07 18:13 | disposition home or self-care (01) | DRG 305 ==
LOC: ED 11:43 → MEDTELE 14:28 → ED 15:49 → OBSVTOIN 12-06 09:00
PROVIDERS: ADMIT Internal Medicine; ATTEND Internal Medicine
DX: I16.0 Hypertensive urgency (principal); I08.3 Combined rheumatic disorders of mitral, aortic and tricuspid valves; I27.20 Pulmonary hypertension, unspecified; I10 Essential (primary) hypertension; E78.5 Hyperlipidemia, unspecified; H40.9 Unspecified glaucoma; Z96.652 Presence of left artificial knee joint; R42 Dizziness and giddiness; G25.2 Other specified forms of tremor; G43.909 Migraine, unspecified, not intractable, without status migrainosus; I77.3 Arterial fibromuscular dysplasia; Z85.3 Personal history of malignant neoplasm of breast; Z90.12 Acquired absence of left breast and nipple; Z82.49 Family history of ischemic heart disease and other diseases of the circulatory system; Z90.49 Acquired absence of other specified parts of digestive tract; Z72.89 Other problems related to lifestyle; Z79.82 Long term (current) use of aspirin; Z83.518 Family history of other specified eye disorder
CPT/HCPCS: 36415; 70450; 70496; 70498; 70551; 80053; 80061; 81003; 81015; 83605; 84443; 84484; 85025; 85610; 86140; 87086; 93005; 93306; 99284; A9270-GY; G0378; J1644; Q9967

== ENCOUNTER 2019-06-15 08:42 | Emergency (ER) | payer MEDICARE, MEDICAID ==
--- NOTE | 2019-06-15 09:17 | ED ---
Respiratory - HPI Summary HPI Summary: An 78-year-old female who presents emergency department for productive cough 8 days. No associated symptoms of fever, chest pain, abdominal pain, vomiting, diarrhea, urinary symptoms. Patient mainly speaks Armenian and patient's daughter was used as machine ironer. Past medical history of hypertension. Symptoms are moderate in severity. No current modifying factors. - History of Current Complaint Chief Complaint: EDGeneral Stated Complaint: COUGH FOR THREE DAYS PER PT Time Seen by Provider: 06/15/19 09:06 Hx Obtained From: Patient, Family/Survey Methodologist Pain Intensity: 0 - Allergy/Home Medications Allergies/Adverse Reactions: Allergies Allergy/AdvReac Type Severity Reaction Status Date / Time No Known Allergies Allergy Verified 06/15/19 08:50 PMH/Surg Hx/FS Hx/Imm Hx Previously Healthy: Yes Endocrine/Hematology History: Reports: Other Endocrine/Hematological Disorders - HLD Denies: Hx Diabetes Cardiovascular History: Reports: Hx Hypercholesterolemia Denies: Hx Hypertension - BP elevated 12/05/17, Hx Pacemaker/ICD GI History: Reports: Hx Gall Bladder Disease - elias History: Denies: Hx Renal Disease Musculoskeletal History: Reports: Hx Arthritis Sensory History: Reports: Hx Contacts or Glasses, Hx Glaucoma Denies: Hx Hearing Aid Opthamlomology History: Reports: Hx Contacts or Glasses, Hx Glaucoma Neurological History: Reports: Other Neuro Impairments/Disorders - resting R arm tremor, r/o TIA 12/05/17, DIZZINESS Psychiatric History: Denies: Hx Panic Disorder - Cancer History Cancer Type, Location and Year: BREAST CA - Surgical History Surgery Procedure, Year, and Place: LEFT MASTECTOMY 1996, [facility], L KNEE SURGERY , BLADDER Infectious Disease History: No Infectious Disease History: Denies: Traveled Outside the [place] in Last 30 Days - Family History Known Family History: Positive: Cardiac Disease, Non-Contributory - Social History Occupation: Retired Lives: With Family Alcohol Use: None Substance Use Type: Reports: None Smoking Status (MU): Never Smoked Tobacco Review of Systems Constitutional: Negative Negative: Fever ENT: Negative Cardiovascular: Negative Negative: Palpitations, Chest Pain Positive: Shortness Of Breath, Cough Positive: Nausea. Negative: Abdominal Pain, Vomiting, Diarrhea Genitourinary: Negative Skin: Negative Neurological: Negative All Other Systems Reviewed And Are Negative: Yes Physical Exam Triage Information Reviewed: Yes Vital Signs On Initial Exam: Initial Vitals Temp Pulse Resp BP Pulse Ox 96.9 F 77 16 145/77 95 06/15/19 08:47 06/15/19 08:47 06/15/19 08:47 06/15/19 08:47 06/15/19 08:47 Vital Signs Reviewed: Yes Appearance: Positive: Well-Appearing - Pt. lying in bed in NAD. Daughter present. Skin: Positive: Warm, Dry Head/Face: Positive: Normal Head/Face Inspection Eyes: Positive: Normal, EOMI, GEORGE Neck: Positive: Supple Respiratory/Lung Sounds: Positive: Other - Diffuse inspiratory and expiratory wheeze throughout. No accessory muscle use. Cardiovascular: Positive: Normal, RRR Abdomen Description: Positive: Nontender, Soft Musculoskeletal: Negative: Edema Left, Edema Right Neurological: Positive: Normal, CN Intact II-III Diagnostics - Vital Signs Vital Signs Temp Pulse Resp BP Pulse Ox 06/15/19 08:47 96.9 F 77 16 145/77 95 - Laboratory Result Diagrams: 06/15/19 09:30 06/15/19 09:30 Lab Statement: Any lab studies that have been ordered have been reviewed, and results considered in the medical decision making process. Disposition - Course Course Of Treatment: Patient presenting with cough and wheeze. She is afebrile with stable vital signs. Oxygen saturation is 96% on room air which is normal. Patient given DuoNeb treatment with some improvement. She's been given a dose of IV site Medrol and a second DuoNeb treatment. Blood work is unremarkable including normal CBC, BNP and fever.. Chest x-ray is negative for keep findings, reading per radiology. ECG done at 09 shows a sinus rhythm of 64bpm, normal axis, no STEMI, unchanged from prior tracing. On reexamination wheezing has improved and patient is feeling better. She was ambulated and pulse ox remained in the mid 90s on room air. We'll treat for bronchitis with a course of prednisone, Zithromax and inhaler. To follow-up with PCP in 2-3 days for recheck. Return to the ER symptoms change or worsen. Patient and daughter understand and agree with plan. - Differential Dx - Cardiopulmonary Differential Diagnoses - Cardiopulmonary: Asthma, CAD, CHF - Diagnoses Provider Diagnoses: Bronchitis, Bronchospasm Discharge ED - Sign-Out/Discharge Documenting (check all that apply): Patient Departure Patient Received Moderate/Deep Sedation with Procedure: No - Discharge Plan Condition: Improved Disposition: HOME Prescriptions: Albuterol HFA INHALER* [Ventolin HFA Inhaler*] 2 puff INH Q4H PRN #1 mdi PRN Reason: Wheezing Azithromycin TAB* [Zithromax TAB (Z-ERLINDA) 250 mg #6 tabs] 2 tab PO .TODAY, THEN 1 DAILY #1 erlinda predniSONE TAB* [Deltasone TAB*] 50 mg PO ONCE #5 tab Patient Education Materials: Acute Bronchitis (ED), Bronchospasm (ED) Referrals: Mynor Del Toro MD [Primary Care Provider] - Additional Instructions: Follow up with PCP in 2-3 days for recheck Take medication as directed Return to ER if symptoms change or worsen - Billing Disposition and Condition Condition: IMPROVED Disposition: Home - Attestation Statements Provider Attestation: I was available for consult. This patient was seen by the YADIRA. The patient was not presented to, seen by, or examined by me. -Sailaja
[2019-06-15] MEDS: Albuterol/Ipratropium NEB.SOL* Albuterol 2.5 MG/Ipratropium 0.5 MG 3 ML INH ONE ×2 (09:19→10:25)
[2019-06-15 09:40] LABS: ABS Basophils 0.1 10^3/ul (0-0.2); ABS Eosinophils 0.4 10^3/ul (0-0.6); ABS Lymphocytes 1.6 10^3/ul (1.0-4.8); ABS Monocytes 0.4 10^3/ul (0-0.8); ABS Neutrophils 2.3 10^3/ul (1.5-7.7); Eosinophil % 7.8 %; Hematocrit 39 % (35-47); Hemoglobin 13.2 g/dL (12.0-16.0); Lymphocyte % 33.8 %; Mean Corpuscular HGB Conc 34 g/dL (31-36); Mean Corpuscular Hemoglobin 31 pg (27-31); Mean Corpuscular Volume 91 fL (80-97); Mean Platelet Volume 7.4 fL (7.4-10.4); Nucleated Red Blood Cells % 0.1; Platelet Count 203 10^3/uL (150-450); Red Blood Count 4.26 10^6 /uL (3.70-4.87); Red Cell Distribution Width 14 % (10-15); White Blood Count 4.6 10^3/uL (3.5-10.8)
[2019-06-15] MEDS: methylPREDNISolone 125 MG* 2 ML VIAL IV ONE (10:17)
[2019-06-15 10:18] LABS: Albumin 3.7 g/dL (3.2-5.2); Albumin/Globulin Ratio 1.4 (1-3); BUN/Creatinine Ratio 24.7 (8-20); C Reactive Protein 2.32 mg/L (<8.01); Calcium 9.6 mg/dL (8.6-10.3); EGFR African American 92.8 (>60); EGFR Non-African American 76.7 (>60); Globulin 2.6 g/dL (2-4); Magnesium 1.9 mg/dL (1.9-2.7); Total Bilirubin 0.6 mg/dL (0.2-1.0); Total Protein 6.3 g/dL (6.4-8.9)
[2019-06-15 11:31] VITALS: BP 172/76
== END 2019-06-15 11:30 | disposition home or self-care (01) ==
LOC: ED 08:42
DX: J20.9 Acute bronchitis, unspecified (principal); E78.00 Pure hypercholesterolemia, unspecified; Z90.12 Acquired absence of left breast and nipple; Z90.49 Acquired absence of other specified parts of digestive tract; Z79.899 Other long term (current) drug therapy
CPT/HCPCS: 36415; 71046; 80053; 83735; 83880; 84484; 85025; 86140; 93005; 96374; 99283; A9270-GY; J2930

== ENCOUNTER 2019-09-21 17:56 | Emergency (ER) | payer MEDICARE, MEDICAID ==
--- OUTSIDE RECORDS SUMMARY | 2019-09-21 18:17 | XMS REPORT | Summary of Care ---
:1940 Author Organization [facility] Address [address] [facility] LAILA Suarez [address] Care Team Providers Name Role Phone Mynor Del Toro Primary Care Provider Reason for Referral Refer to Department Only (Routine) Status Reason Specialty Diagnoses / Referred By Referred To Procedures Contact Contact Authorized PLASTIC SURGERY Diagnoses Squamous cell skin cancer, face Mynor Del Toro David, R, MD MD [address] [id number] [facility] Phone: [address] [place] [address] [address] Fax: [place] [address] Scheduling Instructions Fahad Reason for Visit Reason Comments Lesion Removal Patient here for reexcision of left side of face and asking to have another area removed. Encounter Details Date Type Department Care Team Description 08/17/2019 Office Visit [facility] Mynor Del Toro, Pigmented skin lesion (Primary Dx); Medicine Squamous cell skin cancer, face [address] [place] [address] [place] [address] [phone] Allergies No Known Allergiesdocumented as of this encounter (statuses as of 08/17/2019) Medications Medication Sig Dispensed Refills Start Date End Date Status latanoprost (XALATAN) 1 Drop DAILY. 1 0 Active 0.005% OP SOLN gtt OU qd Benzonatate 200 MG Take 1 Cap by 30 Cap 1 09/22/2018 Active Oral Cap mouth THREE TIMES DAILY NEEDED (cough). amLodipine (NORVASC) Take 1 Tab by 90 Tab 5 09/30/2018 Active 2.5 MG Oral Tab mouth DAILY. guaiFENesin-codeine Take 10 mL by 240 mL 0 10/15/2018 Active (ROBITUSSIN AC) 100-10 mouth EVERY MG/5ML Oral BEDTIME SolutionIndications: NEEDED (cough). Cough Max Daily Amount: 10 mL. naproxen (NAPROSYN) Take 1 Tab by 60 Tab 5 04/01/2019 03/31/2020 Active 500 MG Oral Tab mouth TWICE DAILY. polyethylene glycol Take 17 g by 2 Bottle 5 04/01/2019 Active (MIRALAX) Oral Powder mouth TWICE DAILY. documented as of this encounter (statuses as of 08/17/2019) Active Problems Problem Noted Date Mixed hyperlipidemia 12/11/2017 History of left mastectomy 10/16/2016 Overview: History breast cancer Essential hypertension 07/15/2016 Overview: Controlled with diet and lifestyle H/O total knee replacement 11/03/2013 BMI 40.0-44.9, adult 06/18/2012 Overview: sustained wt reduction with portion control and sustained routine exercise. Set realistic goal of 1# wt reduction /week set 10 week goals. Dysthymic disorder 10/22/2007 Personal history of breast cancer 10/22/2007 Overview: Left breast cancer 1991, left breast prothesis. documented as of this encounter (statuses as of 08/17/2019) Resolved Problems Problem Noted Date Resolved Date S/P total knee arthroplasty 08/18/2013 07/15/2016 Osteoarthritis of left knee 08/04/2013 07/15/2016 Obesity, unspecified 10/22/2007 09/10/2018 Osteoarthritis of Knee 10/22/2007 07/15/2016 Overview: Particularly knees Eye irritation 10/22/2007 12/17/2011 documented as of this encounter (statuses as of 08/17/2019) Immunizations Name Administration Dates Next Due Depo Medrol (40mg) 03/06/2016, 01/29/2012, 08/12/2010 Depo Medrol (80mg) 11/04/2012, 12/26/2010 Influenza (IM) Preservative Free 07/05/2018, 07/04/2014, 07/22/2013, 10/14/2012, 08/10/2010, 07/05/2009 Influenza Vaccine 65 Yrs + 07/14/2019 Influenza Vaccine High Dose 07/15/2017, 07/15/2016, 08/24/2015 Influenza Vaccine Whole 07/07/2007 Influenza Virus Vaccine Pres Free 6-35 07/18/2011 Months PNEUMOCOCCAL POLYSACCHARIDE VACCINE 02/23/2014 Pneumococcal Conjugate(13 Valent) 08/14/2017 documented as of this encounter Social History Tobacco Use Types Packs/Day Years Used Date Never Smoker Smokeless Tobacco: Never Used Alcohol Use Drinks/Week oz/Week Comments Yes occ Sex Assigned at Date Recorded Not on file Job Start Date Occupation Industry Not on file Not on file Not on file Travel History Travel Start Travel End No recent travel history available. documented as of this encounter Last Filed Vital Signs Vital Sign Reading Time Taken Comments Blood Pressure 124/80 08/17/2019 10:22 AM EST Pulse - - Temperature - - Respiratory Rate - - Oxygen Saturation - - Inhaled Oxygen Concentration - - Weight 85.7 kg (189 lb) 08/17/2019 10:22 AM EST Height 152.4 cm (5') 08/17/2019 10:22 AM EST Body Mass Index 36.91 08/17/2019 10:22 AM EST documented in this encounter Patient Instructions Patient InstructionsMynor Del Toro MD - 08/17/2019 10:[address] Jose Vásquez [facility] you can call him for the squamous cell skin cancer The numbness that you feel as a result of the local anesthetic will gradually go away in a few hours. After that, you may have some mild discomfort at the surgical site. You may use over the counter acetaminophen (tylenol) 2 pills every 6-8 hours as needed for this. 1. Keep the wound area and dressing clean and dry for the first 24 hours. 2. Bathing is allowed after 24 hours. 3. Do not immerse or soak the wound/sutures in water for a prolonged time. 4. After the first day, cleanse the wound lightly with soap and water and apply a small amount of antibiotic ointment (bacitracin, neosporin or triple antibiotic) and cover daily with a band aid. 5. Notify our office at [phone] for the following: -temperature greater than 101 -increasing redness or pain at the site -a foul smelling discharge from the site -increased pain or swelling at the site -bleeding that soaks through the dressing Remove 2 stitches one weekElectronically signed by Mynor Del Toro MD at 10:33 AM EST documented in this encounter Progress Notes Mynor Del Toro MD - 08/17/2019 10:00 AM EST PATIENT: Roya Martinez : 1940 DATE OF SERVICE: 08/17/2019 CHIEF COMPLAINT: Chief Complaint Patient presents with Lesion Removal Patient here for reexcision of left side of face and asking to have another area removed. Subjective HISTORY OF PRESENT ILLNESS: Roya Martinez is a 78-y.o. female. HPI Here with daughter reviewed right lower cheek biopsy results FINAL DIAGNOSIS 1. Skin, right face, punch: - Evolving squamous cell carcinoma in situ. - The lesional cells extend to the radial edges of the specimen. - Multiple levels examined. 2. Skin, left leg, punch: - Verrucous keratosis. She has large lesion remaining at that spot at least 1-2 cm diameter so I recommend plastic surgery referral for this lesion Patient Active Problem List Diagnosis Dysthymic disorder Personal history of breast cancer BMI 40.0-44.9, adult (HCC) H/O total knee replacement Essential hypertension History of left mastectomy Mixed hyperlipidemia No family history on file. Current Outpatient Medications Medication Sig amLodipine (NORVASC) 2.5 MG Oral Tab Take 1 Tab by mouth DAILY. Benzonatate 200 MG Oral Cap Take 1 Cap by mouth THREE TIMES DAILY NEEDED (cough). guaiFENesin-codeine (ROBITUSSIN AC) 100-10 MG/5ML Oral Solution Take 10 mL by mouth EVERY BEDTIME NEEDED (cough). Max Daily Amount: 10 mL. latanoprost (XALATAN) 0.005% OP SOLN 1 Drop DAILY. 1 gtt OU qd naproxen (NAPROSYN) 500 MG Oral Tab Take 1 Tab by mouth TWICE DAILY. polyethylene glycol (MIRALAX) Oral Powder Take 17 g by mouth TWICE DAILY. No current facility-administered medications for this visit. No Known Allergies Social History Socioeconomic History Marital status: Spouse name: Not on file Number of children: Not on file Years of education: Not on file Highest education level: Not on file Occupational History Not on file Social Needs Financial resource strain: Not on file Food insecurity: Worry: Not on file Inability: Not on file Transportation needs: Medical: Not on file Non-medical: Not on file Tobacco Use Smoking status: Never Smoker Smokeless tobacco: Never Used Substance and Sexual Activity Alcohol use: Yes Comment: occ Drug use: No Sexual activity: Not Currently Partners: Male Lifestyle Physical activity: Days per week: Not on file Minutes per session: Not on file Stress: Not on file Relationships Social connections: Talks on phone: Not on file Gets together: Not on file Attends hinduism service: Not on file Active member of club or organization: Not on file Attends meetings of clubs or organizations: Not on file Relationship status: Not on file Intimate partner violence: Fear of current or ex partner: Not on file Emotionally abused: Not on file Physically abused: Not on file Forced sexual activity: Not on file Other Topics Concern Back Care Not Asked Bike Helmet Not Asked Blood Transfusions No Caffeine Concern Not Asked Exercise No Comment: none formal---walks Hobby Hazards Not Asked International Travel Not Asked Service Not Asked Occupational Exposure Not Asked Seat Belt Not Asked Self-Exams Not Asked Sleep Concern Not Asked Special Diet Not Asked Stress Concern Not Asked Weight Concern Not Asked Social History Narrative . 5 children. 2 in [place]. 3 in [facility] Retired rest business. Pets: 1 dog ROS denies itch Objective PHYSICAL EXAM: VITALS: BP 124/80 | Ht 5' (1.524 m) | Wt 189 lb (85.7 kg) | BMI 36.91 kg/m Body mass index is 36.91 kg/m. Physical Exam 8 mm flat black brown irregular lesion right upper cheek After informed written consent was obtained, using alcohol for cleansing and 2% Lidocaine with epinephrine for anesthetic, with sterile technique a 6 mm punch biopsy was used to obtain a biopsy specimen of the lesion located on the right upper cheek. Hemostasis was obtained by pressure and wound was sutured with 2 3-0 ethilon suture. Antibiotic dressing is applied, and wound care instructions provided. Be alert for any signs of cutaneous infection. The specimen is labeled and sent to pathology forevaluation. The procedure was well tolerated without complications. ASSESSMENT / IMPRESSION: ICD-9-CM ICD-10-CM 1. Pigmented skin lesion right upper cheek 709.00 L81.9 EXCISION LESION TISSUE EXAM 2. Squamous cell skin cancer, face refer plastic surgery 173.32 C44.320 REFER TO PLASTIC SURGERY Patient Instructions Plastic surgeon Dr Jose Vásquez [place] you can call him for the squamous cell skin cancer The numbness that you feel as a result of the local anesthetic will gradually go away in a few hours. After that, you may have some mild discomfort at the surgical site. You may use over the counter acetaminophen (tylenol) 2 pills every 6-8 hours as needed for this. 1. Keep the wound area and dressing clean and dry for the first 24 hours. 2. Bathing is allowed after 24 hours. 3. Do not immerse or soak the wound/sutures in water for a prolonged time. 4. After the first day, cleanse the wound lightly with soap and water and apply a small amount of antibiotic ointment (bacitracin, neosporin or triple antibiotic) and cover daily with a band aid. 5. Notify our office at [phone] for the following: -temperature greater than 101 -increasing redness or pain at the site -a foul smelling discharge from the site -increased pain or swelling at the site -bleeding that soaks through the dressing Remove 2 stitches one week Mynor Del Toro MD 08/17/2019 11:48 documented in this encounter Plan of Treatment Name Type Priority Associated Diagnoses Date/Time TISSUE EXAM Lab Routine Pigmented skin lesion 08/17/2019 10:45 AM EST Name Type Priority Associated Diagnoses Order Schedule EXCISION LESION Procedures Routine Pigmented skin lesion Ordered: 2018 Name Type Priority Associated Diagnoses Order Schedule REFER TO PLASTIC Referral Routine Squamous cell skin Expected: 08/17/2019, SURGERY cancer, face Expires: 08/17/2020 Health Maintenance Due Date Last Done Comments HIV SCREENING 1955 ZOSTER IMMUNIZATION SERIES 1988 (1 of 2) MEDICARE ANNUAL WELLNESS 08/14/2018 08/14/2017, 02/29/2016, VISIT 2014, Additional history exists DEPRESSION SCREENING 09/10/2019 09/10/2018 FALL RISK ASSESSMENT 09/10/2019 09/10/2018, 09/10/2018 PNEUMOCOCCAL 65+YRS Completed 08/14/2017, 02/23/2014 INFLUENZA VACCINE Completed 07/14/2019, 07/05/2018, 07/15/2017, Additional history exists HPV IMMUNIZATION SERIES Aged Out No longer eligible based on patient's age to complete this topic MENINGOCOCCAL VACCINE IMM Aged Out No longer eligible based on patient's age to complete this topic documented as of this encounter Goals Goal Patient Goal Associated Recent Patient-Stated? Author Type Problems Progress Blood Pressure Blood Pressure 124/80 No Alverto, < 150/90 (08/17/2019 Mynor Shay, 10:22 AM EST) Note: This is an individualized treatment (blood pressure) goal for Roya Martinez: Displayed above (on the left) is your goal for blood pressure control. Your most recent blood pressure is also shown above, on the right. You should try to achieve blood pressures that are lower than your goal listed above (on the left). Depression screen (PHQ-9) total score < 5 Depression Mynor Velez MD Note: This is an individualized treatment (depression) goal for Roya Martinez: Displayed above is your goal for a depression screening (PHQ-9) score that would indicate good control of your depression. Weight loss vs. 18 mo Lifestyle 0 (08/17/2019 10:22 AM Mynor Velez MD max (lbs) >= 10 EST) Note: This is an individualized lifestyle goal for Roya Martinez: Your body mass index (BMI) is more than 30. You should lose weight. A reasonable starting goal is to lose 10 pounds. Displayed above is how many pounds you have lost thus far towards your 10 pound weight loss goal. Keep a regular sleep schedule Lifestyle Mynor Velez MD Note: This is an individualized lifestyle goal for Roya Martinez: Please maintain a regular sleep schedule. This may help with some symptoms of depression. Take all prescribed medications as Self-management Mynor Velez MD directed Note: This is an individualized self-management goal for Roya Martinez: Please take all prescribed medications as directed. 1. Do not skip doses. If you cannot afford your medications, talk with your doctor. 2. Use a pill reminder system such as a pill box if needed. Your pharmacist can help you with this. 3. Contact your Pharmacy 5 days before your medication runs out. If you cannot take your medications for any reasons, talk with your doctor. 4. Please bring all of your medication bottles and inhalers (or a list of all your medications/inhalers) with you to every visit. Potential barriers to meeting all of your care plan goals will continue to be addressed on an ongoing basis. documented as of this encounter Implants Implanted Type [employer] Device Shelf Model / Identifier Expiration Serial / Lot Date Smart Set Bone Cement W/ Gentimy - [id number] Left: DEPUY [id number] / Implanted: Qty: 1 on 08/01/2013 at [facility] / [id number] Smart Set Cement - [id number] Left: DEPUY [id number] / Implanted: Qty: 1 on 08/01/2013 at [facility] / [id number] Lps-Flex Option Femoral D Left - [id number] Left: DEMETRAJOE PACHECOALL 5964- 14-51 / Implanted: Qty: 1 on 08/01/2013 at [facility] [employer] / [id number] Nexgen Micro Tib Plate Size 2 - [id number] Left: DEMETRAJOE PACHECOALL 5980-27 -02 / Implanted: Qty: 1 on 08/01/2013 at [facility] [employer] / [id number] Nexgen Micro Art Hawa 10mm Cd - [id number] Left: DEMETRAJOE PACHECOALL 5964-22- 10 / Implanted: Qty: 1 on 08/01/2013 at [facility] [employer] / [id number] documented as of this encounter Results Not on filedocumented in this encounter Visit Diagnoses Diagnosis Pigmented skin lesion - Primary Dyschromia, unspecified Squamous cell skin cancer, face Squamous cell carcinoma of skin of other and unspecified parts of face documented in this encounter Insurance Payer Benefit Plan / Subscriber ID Effective Dates Phone Address Type Group MEDICARE MEDICARE PART A xxxxxxxxxxx 2003-Present Medicare & B MEDICAID [facility] xxxxxxxx 2017-Present Medicaid [place] MEDICA[place] Guarantor Name Account Type Relation to Date of Phone Billing Patient Address Roya Martinez Personal/Family 1940 [id number] (Home) [place], [place] [phone] (Work) documented as of this encounter"
--- NOTE | 2019-09-21 21:43 | ED ---
Hypertension - HPI Summary HPI Summary: 78-year-old female with significant past medical history of hypertension reports to the emergency department today complaining of dizziness, emesis 5, elevated blood pressure of 180/94 with a feeling of "head heaviness", chest pain per son. Patient typically takes 5 mg of amlodipine at night for her elevated blood pressure however she endorses taking a double dose (10 mg) after she noticed she had elevated blood pressure this evening. Patient is [place]orese speaking and her son is available for translation. Patient denies fever, rash, shortness breath, abdominal pain, pain with urination. - History of Current Complaint Chief Complaint: EDGeneral Stated Complaint: HIGH BLOOD PRESSURE PER DAUGHTER Time Seen by Provider: 09/21/19 21:24 Hx Obtained From: Patient, Family/Meeting Facilitator - Some available for translation as patient is [place]se-speaking Onset/Duration: Started Hours Ago Timing: Constant Reported Blood Pressure Prior To Arrival: 180/90 measured at home by patient Aggravating Factor(s): Exertion Alleviating Factor(s): Rest Associated Signs & Symptoms: Chest Pain, Headaches Current Medications: Ca Channel Liz - Risk Factors Cardiac Risk Factors: Hypertension - Allergies/Home Medications Allergies/Adverse Reactions: Allergies Allergy/AdvReac Type Severity Reaction Status Date / Time No Known Allergies Allergy Verified 09/21/19 21:29 Home Medications: Home Medications Naproxen TAB* [Naprosyn 250 mg TAB*] 500 mg PO Q8H PRN 09/21/19 [History Confirmed 09/21/19] amLODIPine TAB* [Norvasc 5 mg TAB*] 2.5 mg PO DAILY 09/21/19 [History Confirmed 09/21/19] PMH/Surg Hx/FS Hx/Imm Hx Endocrine/Hematology History: Reports: Other Endocrine/Hematological Disorders - HLD Denies: Hx Diabetes Cardiovascular History: Reports: Hx Hypercholesterolemia Denies: Hx Hypertension - BP elevated 12/05/17, Hx Pacemaker/ICD GI History: Reports: Hx Gall Bladder Disease - elias History: Denies: Hx Renal Disease Musculoskeletal History: Reports: Hx Arthritis Sensory History: Reports: Hx Contacts or Glasses, Hx Glaucoma Denies: Hx Hearing Aid Opthamlomology History: Reports: Hx Contacts or Glasses, Hx Glaucoma Neurological History: Reports: Other Neuro Impairments/Disorders - resting R arm tremor, r/o TIA 12/05/17, DIZZINESS Psychiatric History: Denies: Hx Panic Disorder - Cancer History Cancer Type, Location and Year: BREAST CA - Surgical History Surgery Procedure, Year, and Place: LEFT MASTECTOMY 1996, [facility], L KNEE SURGERY , BLADDER - Immunization History Date of Influenza Vaccine: Fall 2018 Infectious Disease History: No Infectious Disease History: Denies: Traveled Outside the [place] in Last 30 Days - Family History Known Family History: Positive: Cardiac Disease, Non-Contributory - Social History Alcohol Use: None Substance Use Type: Reports: None Smoking Status (MU): Never Smoked Tobacco Review of Systems Constitutional: Negative Eyes: Negative ENT: Negative Positive: Chest Pain Respiratory: Negative Positive: Vomiting. Negative: Abdominal Pain, Diarrhea, Nausea Genitourinary: Negative Musculoskeletal: Negative Skin: Negative Positive: Headache. Negative: Weakness, Paresthesia, Numbness, Syncope, Slurred Speech Psychological: Normal All Other Systems Reviewed And Are Negative: Yes Physical Exam Triage Information Reviewed: Yes Vital Signs On Initial Exam: Initial Vitals Temp Pulse Resp BP Pulse Ox 97.3 F 71 16 176/81 98 09/21/19 18:06 09/21/19 18:06 09/21/19 18:06 09/21/19 18:06 09/21/19 18:06 Vital Signs Reviewed: Yes Appearance: Positive: Well-Appearing, No Pain Distress, Well-Nourished Skin: Positive: Warm, Skin Color Reflects Adequate Perfusion Head/Face: Positive: Normal Head/Face Inspection Eyes: Positive: EOMI, GEORGE ENT: Positive: Hearing grossly normal Neck: Positive: Nontender Respiratory/Lung Sounds: Positive: Clear to Auscultation, Breath Sounds Present Cardiovascular: Positive: RRR, S1, S2 Abdomen Description: Positive: Nontender, Soft Bowel Sounds: Positive: Present Musculoskeletal: Positive: Strength/ROM Intact, Edema Left, Edema Right, Other - +1 pitting edema noted bilaterally lower extremities.. Negative: Chetan Sign Left, Chetan Sign Right Neurological: Positive: Sensory/Motor Intact, Alert, Oriented to Person Place, Time, Speech Normal Psychiatric: Positive: Normal AVPU Assessment: Alert Procedures - Sedation Patient Received Moderate/Deep Sedation with Procedure: No Diagnostics - Vital Signs Vital Signs Temp Pulse Resp BP Pulse Ox 09/21/19 21:16 76 99 09/21/19 21:15 79 188/82 99 09/21/19 18:06 97.3 F 71 16 176/81 98 - Laboratory Result Diagrams: 09/21/19 21:51 09/21/19 21:51 Lab Statement: Any lab studies that have been ordered have been reviewed, and results considered in the medical decision making process. Hypertension Course/Dx - Course Course Of Treatment: patient was evaluated in the emergency department for elevated blood pressure. Upon arrival patients blood pressure was 188/90. Prior to arrival patient recently took her home blood pressure medication she saw her blood pressure is elevated. Patient was seen and examined she had no neurological deficits. Laboratory studies show no evidence of end organ damage or leukocytosis. Head CT showed no evidence of intracranial pathology or bleed. During her stay in the emergency department her blood pressure spontaneously decreased to 168/ 80mmHg. Patient was told to follow-up with her primary care provider for medication changes as it appeared there is no acute pathology requiring intervention at this time. After her blood pressure resolved her symptoms disappeared as well. - Diagnoses Differential Diagnosis/HQI PQRI: Cerebral Bleed, Hypertension, Hypertensive Crisis, Hypertensive Urgency, Myocardial Infarction Provider Diagnoses: Hypertension Discharge ED - Sign-Out/Discharge Documenting (check all that apply): Patient Departure - Discharge Plan Condition: Stable Disposition: HOME Patient Education Materials: Hypertension (ED) Referrals: Mynor Del Toro MD [Primary Care Provider] - 3 Days Additional Instructions: You were seen in the emergency department due to side effects of high blood pressure. Laboratory studies were done as well as imaging showed no acute medical problems requiring intervention at this time. Please follow up with your primary care provider in 2-3 days for further evaluation and management of your symptoms as well as medication adjustment. Please return to the emergency department immediately if you develop any new or worsening symptoms. - Billing Disposition and Condition Condition: STABLE Disposition: Home
[2019-09-21 21:57] LABS: ABS Basophils 0.1 10^3/ul (0-0.2); ABS Eosinophils 0.2 10^3/ul (0-0.6); ABS Lymphocytes 1.9 10^3/ul (1.0-4.8); ABS Monocytes 0.4 10^3/ul (0-0.8); ABS Neutrophils 4.2 10^3/ul (1.5-7.7); Eosinophil % 3.3 %; Hematocrit 39 % (35-47); Hemoglobin 14.1 g/dL (12.0-16.0); Lymphocyte % 28.6 %; Mean Corpuscular HGB Conc 36 g/dL (31-36); Mean Corpuscular Hemoglobin 32 pg (27-31); Mean Corpuscular Volume 90 fL (80-97); Mean Platelet Volume 7.7 fL (7.4-10.4); Nucleated Red Blood Cells % 0.1; Platelet Count 194 10^3/uL (150-450); Red Blood Count 4.36 10^6 /uL (3.70-4.87); Red Cell Distribution Width 13 % (10-15); White Blood Count 6.8 10^3/uL (3.5-10.8)
[2019-09-21 22:14] LABS: Albumin 4.3 g/dL (3.2-5.2); Albumin/Globulin Ratio 1.4 (1-3); Calcium 10.6 mg/dL (8.6-10.3); EGFR African American 114.2 (>60); EGFR Non-African American 94.4 (>60); Potassium 4.2 mmol/L (3.5-5.0); Total Bilirubin 0.9 mg/dL (0.2-1.0); Total Protein 7.3 g/dL (6.4-8.9)
[2019-09-21 23:05] LABS: Urine Appearance Clear; Urine Bilirubin Negative (Negative); Urine Blood 1+ (Negative); Urine Color Straw; Urine Glucose Negative (Negative); Urine Ketones Negative (Negative); Urine Nitrite Negative (Negative); Urine Protein Negative (Negative); Urine Specific Gravity 1.003 (1.010-1.030); Urine Urobilinogen Negative (Negative)
[2019-09-21 23:13] LABS: Urine Bacteria Absent (Absent); Urine Red Blood Cell Trace(0-2/hpf) (Absent); Urine Squamous Epithelial Cell Present (Absent); Urine White Blood Cell Absent (Absent)
[2019-09-22 01:46] VITALS: BP 127/84
== END 2019-09-22 01:43 | disposition home or self-care (01) ==
LOC: ED 17:56
DX: I10 Essential (primary) hypertension (principal); R07.9 Chest pain, unspecified; R51 Headache; E78.00 Pure hypercholesterolemia, unspecified; Z79.899 Other long term (current) drug therapy; Z85.3 Personal history of malignant neoplasm of breast
CPT/HCPCS: 36415; 70450; 80053; 81003; 81015; 83605; 83880; 84484; 85025; 93005; 99283